=== PATIENT | female | born 1990 | race Caucasian/White ===

== ENCOUNTER 2017-07-20 13:15 | Emergency (ER) | payer BC ==
[~2017-07-20] VITALS: Ht 172.7 cm; Wt 61.2 kg
[2017-07-20 13:45] VITALS: BP 110/63
[2017-07-20 14:06] LABS: BILIRUBIN,URINE NEGATIVE (NEG); GLUCOSE,URINE NEGATIVE (NEG); NITRITE,URINE NEGATIVE (NEG); PH,URINE 5.5; PROTEIN,URINE NEGATIVE (NEG-TRACE); UROBILINOGEN,URINE 0.2 mg/dL (0.2 mg/dL)
[2017-07-20 14:14] LABS: BACTERIA,URINE FEW /HPF (0-FEW); RBC,URINE 0 /HPF (0-2); SQUAMOUS EPITHELIAL CELL,UR MOD /LPF; WBC,URINE OCC /HPF (0-4)
[2017-07-20] MEDS ORDERED: cefTRIAXone IM 250 MG VIAL IM ONE (14:45)
[2017-07-20] MEDS ORDERED: AZITHROMYCIN 250 MG TABLET. PO ONE (14:45)
[2017-07-20] MEDS ORDERED: metroNIDAZOLE 500 MG TABLET PO ONE (15:30)
[2017-07-20] MEDS ORDERED: METR500T8 PO (15:36)
--- NOTE | 2017-07-20 16:31 | ED.ADGEN ---
Past Medical History Past Medical History: Anxiety Additional Past Medical Histor: TBI Past Surgical History: No Surgical History Alcohol Use: Occasionally Drug Use: Marijuana Adult General Chief Complaint Chief Complaint: NAUSEA/VOMITING/DIARRHA HPI HPI Patient is a 26 year old woman, history of anxiety, traumatic brain injury, who presents to the emergency department with a complaint of vaginal discharge, vaginal bleeding, and lower abdominal cramping. Denies any urinary complaints. Patient states she does have concerns for possible sexually transmitted disease exposure. She states she has a single partner. She is anxious and somewhat tearful upon arrival to the emergency department. She denies any nausea or vomiting, any injuries, any lesions, any swelling of the extremities, any rashes , any sick contacts or exposures. She states that the abdominal pain is located mostly on the sides of her pelvic region, she does not have any pain currently. Review of Systems Review of Systems Constitutional: Denies fever or chills. [] Eyes: Denies change in visual acuity. [] HENT: Denies nasal congestion or sore throat. [] Respiratory: Denies cough or shortness of breath. [] Cardiovascular: Denies chest pain or edema. [] GI: Denies nausea, vomiting, bloody stools or diarrhea. Crampy lower abdominal pain, with vaginal bleeding and vaginal discharge. : Denies dysuria. [] Musculoskeletal: Denies back pain or joint pain. [] Integument: Denies rash. [] Neurologic: Denies headache, focal weakness or sensory changes. [] Endocrine: Denies polyuria or polydipsia. [] Lymphatic: Denies swollen glands. [] Psychiatric: Denies depression or anxiety. [] Current Medications Current Medications Current Medications Medications (Trade) Dose Ordered Sig/Audrey Start Time Stop Time Status Last Admin Dose Admin Azithromycin (Zithromax) 1,000 mg 1X ONCE 07/20/17 14:45 07/20/17 14:46 DC 07/20/17 15:09 1,000 MG Ceftriaxone Sodium (Rocephin Im) 250 mg 1X ONCE 07/20/17 14:45 07/20/17 14:46 DC 07/20/17 15:08 250 MG Metronidazole (Flagyl) 500 mg 1X ONCE 07/20/17 15:30 07/20/17 15:31 DC 07/20/17 15:37 500 MG Allergies Allergies Allergies Coded Allergies Type Severity Reaction Last Updated Verified lorazepam Allergy Unknown 07/20/17 Yes sertraline Allergy Unknown 07/20/17 Yes Physical Exam Physical Exam Constitutional: Well developed, well nourished, no acute distress, non-toxic appearance. [] HENT: Normocephalic, atraumatic, bilateral external ears normal, oropharynx moist, no oral exudates, nose normal. [] Eyes: PERRLA, EOMI, conjunctiva normal, no discharge. [] Neck: Normal range of motion, no tenderness, supple, no stridor. [] Cardiovascular:Heart rate regular rhythm, no murmur, S1, S2, no rubs or gallops. [] Lungs & Thorax: Bilateral breath sounds clear to auscultation, no wheezing, rhonchi, rales. No chest or crepitus or tenderness. [] Abdomen: Bowel sounds normal, soft, no tenderness, no rebound, rigidity, no guarding, no masses, no pulsatile masses. [] Skin: Warm, dry, no erythema, no rash. [] Back: No tenderness, no CVA tenderness. [] Extremities: No tenderness, no cyanosis, no clubbing, ROM intact, no edema. [] Neurologic: Alert and oriented X 3, normal motor function, normal sensory function, no focal deficits noted. [] Psychologic: Affect normal, judgement normal, mood normal. [] Pelvic examination: Patient with a normal-appearing external examination, no injuries or lesions identified, bimanual examination reveals a closed os, no CMT , no adnexal masses or tenderness identified, patient with a small amount of dark red discharge, so speculum examination performed without issue, normal- appearing cervix, with a small amount of dark red blood in vault, no active bleeding. Specimens taken without issue. Current Patient Data Vital Signs Vital Signs Date Time Temp Pulse Resp B/P (MAP) Pulse Ox O2 Delivery O2 Flow Rate FiO2 07/20/17 13:45 97.9 76 16 99 Room Air 97.9 Lab Values Laboratory Tests Test 07/20/17 13:02 07/20/17 13:30 POC Urine HCG, Qualitative Hcg negative (Negative) Urine Collection Type Unknown Urine Color Yellow Urine Clarity Clear Urine pH 5.5 Urine Specific [place] >=1.030 Urine Protein Negative mg/dL (NEG-TRACE) Urine Glucose (UA) Negative mg/dL (NEG) Urine Ketones (Stick) Negative mg/dL (NEG) Urine Blood Negative (NEG) Urine Nitrite Negative (NEG) Urine Bilirubin Negative (NEG) Urine Urobilinogen Dipstick 0.2 mg/dL (0.2 mg/dL) Urine Leukocyte Esterase Negative (NEG) Urine RBC 0 /HPF (0-2) Urine WBC Occ /HPF (0-4) Urine Squamous Epithelial Cells Mod /LPF Urine Bacteria Few /HPF (0-FEW) Urine Mucus Marked /LPF Microbiology 07/20/17 Wet Prep - Final, Complete EKG EKG Not indicated.[] Radiology/Procedures Radiology/Procedures Not indicated.[] Course & Med Decision Making Course & Med Decision Making Pertinent Labs and Imaging studies reviewed. (See chart for details) Patient well-appearing, with a pelvic examination reveals small amount of dark red blood in vault but no other concerning findings. As stated, patient is unclear on her menses, states that "I don't follow them". She does have an implant in place, states that it was scheduled to be replaced several months ago but she has not followed up with an OB. She denies any history of sexual transmitted infections, does have concern for possible exposure. She does have a single partner. Patient is calm and cooperative with examination, after discussion with risk versus benefit, she states she would like to be treated prophylactically for chlamydia and gonorrhea, she did receive azithromycin and ceftriaxone in the ED. Wet prep was positive for bacterial vaginosis, negative for any other findings. These findings were discussed with patient, she has no evidence of sexual transmitted infection in the ED. She was given first dose of metronidazole in the ED along with other medications without issue. Importance of following up with either an [facility] [employer] of her choosing, or the health department for a full complement of STD testing discussed with patient in detail. She was also informed that if her cultures are positive she'll be contacted via telephone a registered letter. Patient discharged home in stable condition with plan prescriptions and precautions as above. Dragon Disclaimer Dragon Disclaimer This electronic medical record was generated, in whole or in part, using a voice recognition dictation system. Departure Impression: Primary Impression: Bacterial vaginosis Additional Impression: Concern about sexually transmitted disease in female without diagnosis Disposition: 01 HOME, SELF-CARE Condition: IMPROVED Scripts Metronidazole (METRONIDAZOLE) 500 Mg Tablet 1 TAB PO BID, #13 TAB Prov: BRANDI PRESTON DO 07/20/17 Problem Qualifiers BRANDI PRESTON DO Jul 20, 2017 16:31
== END 2017-07-20 15:45 | disposition home or self-care (01) ==
LOC: ER 13:15 → EDBD 13:15 → ER 15:45
DX: Z11.3 Encounter for screening for infections with a predominantly sexual mode of transmission (principal); N76.0 Acute vaginitis; F41.9 Anxiety disorder, unspecified; Z87.820 Personal history of traumatic brain injury; Z88.8 Allergy status to other drugs, medicaments and biological substances
CPT/HCPCS: 81001; 81025; 87491; 87591; 96372; 99284; J0696; Q0111; Q0144